=== PATIENT | female | born 1970 | race Caucasian/White ===

== ENCOUNTER → 2016-12-06 | Outpatient (CLI) | payer OTHER | LOC: FLAB 14:11 | PROVIDERS: ATTEND Emergency Medicine | DX: M79.645 Pain in left finger(s) (principal) ==

== ENCOUNTER → 2016-12-10 | Outpatient (CLI) | payer OTHER | LOC: FIMAGING 15:32 | PROVIDERS: ATTEND Internal Medicine | DX: Z12.31 Encounter for screening mammogram for malignant neoplasm of breast (principal); Z80.3 Family history of malignant neoplasm of breast | CPT/HCPCS: G0202 ==

== ENCOUNTER 2017-07-25 11:39 | Inpatient (IN) | payer OTHER ==
--- NOTE | 2017-07-25 13:56 | EDPHY ---
General Narrative: CHIEF COMPLAINT: Abdominal pain, abnormal labs HISTORY OF PRESENT ILLNESS: Patient presents with complaints of abdominal pain. This started the. First the left quadrant. Not radiates in the right upper quadrant. It intermittent. It is mild to moderate. Sometimes postprandial. Some nausea and 2 episodes of vomiting on Friday. No bloody emesis or stools. No constipation. No trauma or injury. She was seen by someone at [facility] yesterday with laboratory studies were abnormal involving her liver function test. She was seen at [facility] today, her normal primary care physician, with a obtained an STD panel due to a positive hep C result yesterday. She also has an appointment with infectious disease clinic on Friday with Dr. Gill. She has no fever. She has no current or remote use of IV drugs. She denies any pelvic pain, vaginal bleeding or discharge. She denies any previous known sexually transmitted infections. She does have had to the was done 10 years ago. No other associated complaints or modifying factors REVIEW OF SYSTEMS: Ten systems reviewed and are negative unless otherwise noted in the HPI PCP: Dr. Amy Hernandez SPECIALISTS: None PAST MEDICAL HISTORY: None PAST SURGICAL HISTORY: No recent surgeries SOCIAL HISTORY: Nonsmoker. FAMILY HISTORY: Noncontributory EXAMINATION General Appearance: Alert, no distress Head: normocephalic, atraumatic Eyes: Pupils equal and round, no conjunctival pallor or injection ENT, Mouth: Mucous membranes moist Neck: Normal inspection, supple, non-tender Respiratory: Lungs are clear to auscultation Cardiovascular: Regular rate and rhythm. No murmur Gastrointestinal: Abdomen is soft and nondistended. Mild tenderness in the epigastrium right upper quadrant. No guarding. No tympany. No rigidity. No CVA tenderness Back: non-tender, no bony abnormalities Neurological: A&O, nonfocal, normal gait Skin: Warm and dry, no rash no petechiae or purpura. No ecchymosis Extremities: Nontender, no pedal edema Psychiatric: Mood and affect normal DIFFERENTIAL DIAGNOSES: Including but not limited to hepatitis C, cholecystitis, cholelithiasis, pancreatitis MDM: 12:55 p.m. Intermittent abdominal pain with abnormal laboratory studies from this week. One of these laboratory studies is positive hep C antibody. She was seen today at an outside facility where they reportedly have drawn sexually transmitted infection laboratory panel. We are attempting to obtain the results. I have ordered an ultrasound of the gallbladder due to her pain. Laboratory studies from yesterday reveal no leukocytosis on her CBC. Her lipase was normal yesterday. She is in no acute distress and resting comfortably at this time. 2:15 p.m. Contacted by radiologist Dr. Fan. Ultrasound of the gallbladder reveals an 8 mm mobile stone within the gallbladder. There is gallbladder sludge. The common bile duct is dilated at 10 mm. There is also a 6 mm stone in the common bile duct. I will repeat her laboratory studies at this time. This was not yet done due laboratory studies done yesterday afternoon. 2:35 p.m. Patient re-evaluated. I updated her regarding the ultrasound findings. Her CBC is unremarkable. Her coagulation studies are negative. Her chemistry is pending. She is in no acute distress. 3:00 p.m. Chemistry has returned. Her bilirubin is now elevated at 3.9. It was normal yesterday. I will consult GI and admit the patient for further care. 3:07 p.m. Case discussed with Dr. Haley. He will admit the patient to his service. GI consultation pending. 3:15 p.m. Case discussed with on-call GI physician Dr. Jules Burkett. He will provide consultation on the patient. He instructed the patient may be on a light/clear liquid diet today. He will keep her NPO after midnight in anticipation of ERCP tomorrow. I informed him that I do not see any evidence of cholecystitis at this time. I have re-evaluated the patient. I have informed her of this and of the admission. She still complaining of moderate pain but tolerable at this time. She is resting comfortably in no acute distress. She is admitted in stable condition. SUPERVISION: Patient was independently examined, but I discussed the case with my secondary supervising physician Dr. Gaspar - Diagnostics Imaging Results: Imaging Impressions Abdomen Ultrasound 07/25/17 12:52 Impression: 1. Gallbladder sludge, and a mobile 8 mm gallstone. 2. Intra- and extrahepatic bile duct dilatation, with the common bile duct measuring up to 10 mm in diameter. There is an obstructive 6 mm choledocholith in the distal common bile duct at the level of the pancreatic head. Findings were discussed with Henry Santiago PA-C at 14:12, on 07/25/2017. - History Smoking Status: Never smoked - Objective Vital Signs: Initial Vital Signs Temperature (C) 98.4 F 07/25/17 11:52 Heart Rate 74 07/25/17 11:52 Respiratory Rate 18 07/25/17 11:52 Blood Pressure 126/78 H 07/25/17 11:52 O2 Sat (%) 97 07/25/17 11:52 O2 Delivery Mode Room Air Allergies/Adverse Reactions: MOLDS Allergy (Intermediate, Uncoded 05/01/10 18:25) STUFFY NOSE/ASTHMA TOPICAL ANTIFUNGAL Allergy (Intermediate, Uncoded 05/01/10 18:24) RED, ITCHY, SWOLLEN SKIN Home Medications: Medication Instructions Recorded NK [No Known Home Meds] 07/25/17 Laboratory Results: Laboratory Results 07/25/17 12:20 07/25/17 12:20 07/25/17 07/25/17 07/25/17 12:20 12:20 12:20 WBC 6.34 10^3/uL 10^3/uL (3.80-9.50) RBC 4.57 10^6/uL 10^6/uL (4.18-5.33) Hgb 14.0 g/dL g/dL (12.6-16.3) Hct 40.5 % % (38.0-47.0) MCV 88.6 fL fL (81.5-99.8) MCH 30.6 pg pg (27.9-34.1) MCHC 34.6 g/dL g/dL (32.4-36.7) RDW 12.9 % % (11.5-15.2) Plt Count 280 10^3/uL 10^3/uL (150-400) PT 13.8 SEC SEC (12.0-15.0) INR 1.04 (0.83-1.16) APTT 27.8 SEC SEC (23.0-38.0) Sodium 143 mEq/L mEq/L (135-145) Potassium 4.0 mEq/L mEq/L (3.5-5.2) Chloride 105 mEq/L mEq/L (97-110) Carbon Dioxide 24 mEq/l mEq/l (22-31) Anion Gap 14 mEq/L mEq/L (8-16) BUN 7 mg/dL mg/dL (7-23) Creatinine 0.8 mg/dL mg/dL (0.6-1.0) Estimated GFR > 60 Glucose 103 mg/dL H mg/dL (70-100) Calcium 9.8 mg/dL mg/dL (8.5-10.4) Total Bilirubin 3.9 mg/dL H D mg/dL (0.1-1.4) Conjugated Bilirubin 2.8 mg/dL H mg/dL (0.0-0.5) Unconjugated Bilirubin 1.1 mg/dL mg/dL (0.0-1.1) AST 650 IU/L H IU/L (14-46) ALT 1338 IU/L H IU/L (9-52) Alkaline Phosphatase 127 IU/L H IU/L (38-126) Total Protein 7.0 g/dL g/dL (6.3-8.2) Albumin 4.1 g/dL g/dL (3.5-5.0) Lipase 118 IU/L IU/L (23-300) Medications Given: Discontinued Medications Hydromorphone HCl (Dilaudid) 0.5 mg IVP EDNOW ONE Stop: 07/25/17 16:09 Last Admin: 07/25/17 16:11 Dose: 0.5 mg Departure - Departure Disposition: [facility] Inpatient Acute Clinical Impression: Transaminitis, Hyperbilirubinemia Choledocholithiasis with obstruction Qualifiers: Cholecystitis presence: without cholecystitis Qualified Code(s): K80.51 - Calculus of bile duct without cholangitis or cholecystitis with obstruction Condition: Good
[2017-07-25 14:28] LABS: INR 1.04 (0.83-1.16); PROTIME(PATIENT) 13.8 SEC (12.0-15.0)
[2017-07-25] MEDS ORDERED: HYDROmorphONE/DILAUDID 1 MG/ML INJ IVP ONE (16:08)
[2017-07-25] MEDS ORDERED: HYDROmorphONE/DILAUDID 1 MG/ML INJ ONE (16:09)
--- NOTE | 2017-07-25 16:19 | PDGENHP ---
History and Physical - Chief Complaint abdominal pain - History of Present Illness 46 y/o female without significant past medical history presents to the ED with 5 days of episodic abdominal pain. She described the pain as cramping in the right upper quadrant with radiation to her back. The pain would occur 1-2 hours after eating a meal. Associated symptoms were nausea, vomiting, dark urine, and occasional chills, but denies fever. She denies dysuria and diarrhea. There were no alleviating factors. She rates the pain at its worst at 9/10. She has never experienced this pain in the past. She denies sick contacts. She states she had two doctors appointments after this started and tested positive for Hepatitis. She states she is in a monogamous relationship with her , does not use IV drugs, and has not traveled outside of the country. She reports getting one tattoo over ten years ago. History Information - Allergies/Home Medication List Allergies/Adverse Reactions: MOLDS Allergy (Intermediate, Uncoded 05/01/10 18:25) STUFFY NOSE/ASTHMA TOPICAL ANTIFUNGAL Allergy (Intermediate, Uncoded 05/01/10 18:24) RED, ITCHY, SWOLLEN SKIN Home Medications: NK [No Known Home Meds] 07/25/17 [Last Taken Unknown] I have personally reviewed and updated: family history, medical history, social history, surgical history - Past Medical History no pertinent PMH - Surgical History Additional surgical history: bunionectomy, hand surgery - Family History Additional family history: celiac (mother) - Social History Smoking Status: Never smoked Alcohol Use: None Drug Use: None Review of Systems Review of Systems: ROS: 10pt was reviewed & negative except for what was stated in HPI & below Physical Exam Physical Exam: Temp Pulse Resp BP Pulse Ox 37.1 C 64 16 125/80 H 96 07/25/17 16:03 07/25/17 16:03 07/25/17 16:03 07/25/17 16:03 07/25/17 16:03 Constitutional: no apparent distress, appears nourished, not in pain, other ( mild jaundice) Eyes: PERRL, anicteric sclera, EOMI, icteric sclera Ears, Nose, Mouth, Throat: moist mucous membranes, hearing normal, ears appear normal, no oral mucosal ulcers Cardiovascular: regular rate and rhythym, no murmur, rub, or gallop, No edema Respiratory: no respiratory distress, no rales or rhonchi, clear to auscultation Gastrointestinal: normoactive bowel sounds, no palpable masses, other (soft, minimal ruq tenderness, neg coleman), No hepatosplenomegally, No guarding, No rebound Genitourinary: no bladder fullness, no bladder tenderness Skin: warm, no rashes or abrasions, no fluctuance, no induration, No mottled Musculoskeletal: full muscle strength, no muscle tenderness, normal joint ROM, no joint effusions Neurologic: AAOx3, CN II-XII Intact, No facial droop Psychiatric: interacting appropriately Lymph, Heme, Immunologic: no cervical LAD, no supraclavicular LAD Lab Data & Imaging Review 07/25/17 12:20 07/25/17 12:20 WBC 6.34 10^3/uL (3.80-9.50) 07/25/17 12:20 RBC 4.57 10^6/uL (4.18-5.33) 07/25/17 12:20 Hgb 14.0 g/dL (12.6-16.3) 07/25/17 12:20 Hct 40.5 % (38.0-47.0) 07/25/17 12:20 MCV 88.6 fL (81.5-99.8) 07/25/17 12:20 MCH 30.6 pg (27.9-34.1) 07/25/17 12:20 MCHC 34.6 g/dL (32.4-36.7) 07/25/17 12:20 RDW 12.9 % (11.5-15.2) 07/25/17 12:20 Plt Count 280 10^3/uL (150-400) 07/25/17 12:20 PT 13.8 SEC (12.0-15.0) 07/25/17 12:20 INR 1.04 (0.83-1.16) 07/25/17 12:20 APTT 27.8 SEC (23.0-38.0) 07/25/17 12:20 Sodium 143 mEq/L (135-145) 07/25/17 12:20 Potassium 4.0 mEq/L (3.5-5.2) 07/25/17 12:20 Chloride 105 mEq/L (97-110) 07/25/17 12:20 Carbon Dioxide 24 mEq/l (22-31) 07/25/17 12:20 Anion Gap 14 mEq/L (8-16) 07/25/17 12:20 BUN 7 mg/dL (7-23) 07/25/17 12:20 Creatinine 0.8 mg/dL (0.6-1.0) 07/25/17 12:20 Estimated GFR > 60 07/25/17 12:20 Glucose 103 mg/dL (70-100) H 07/25/17 12:20 Calcium 9.8 mg/dL (8.5-10.4) 07/25/17 12:20 Total Bilirubin 3.9 mg/dL (0.1-1.4) H D 07/25/17 12:20 Conjugated Bilirubin 2.8 mg/dL (0.0-0.5) H 07/25/17 12:20 Unconjugated Bilirubin 1.1 mg/dL (0.0-1.1) 07/25/17 12:20 AST 650 IU/L (14-46) H 07/25/17 12:20 ALT 1338 IU/L (9-52) H 07/25/17 12:20 Alkaline Phosphatase 127 IU/L (38-126) H 07/25/17 12:20 Total Protein 7.0 g/dL (6.3-8.2) 07/25/17 12:20 Albumin 4.1 g/dL (3.5-5.0) 07/25/17 12:20 Lipase 118 IU/L (23-300) 07/25/17 12:20 Laboratory Tests 07/24/17 16:15 Hepatitis A IgM Ab NEGATIVE Hep Bs Antigen NEGATIVE Hep B Core IgM Ab NEGATIVE Hepatitis C Antibody REACTIVE H Imaging Review: abd us reviewed: Impression: 1. Gallbladder sludge, and a mobile 8 mm gallstone. 2. Intra- and extrahepatic bile duct dilatation, with the common bile duct measuring up to 10 mm in diameter. There is an obstructive 6 mm choledocholith in the distal common bile duct at the level of the pancreatic head. Assessment & Plan Assessment: 46 y/o female presenting with 5 days of abd pain found to have: #Choledocholithiasis with obstruction (Acute) -Will consult GI to eval for ERCP #Transaminitis likely due to above vs hepatitis C #Newly diagnosed Hepatitis C --check viral load Admit to in patient Full code
[2017-07-25] MEDS ORDERED: ONDANSETRON 4 MG/2 ML VIAL IVP PRN (16:47)
[2017-07-25] MEDS ORDERED: PROMETHAZINE HCL 25 MG/ML INJ IVP PRN (16:47)
[2017-07-25] MEDS ORDERED: D5W 1/2 NS W/ 20 KCl/L 1,000 ML IV SCH (17:00)
--- NOTE | 2017-07-25 17:35 | PDMN ---
Medical Necessity Medical necessity: C/M review: Patient meets INPT criteria under [facility] M-555 Gallbladder or bile duct inflammation or stone: Acute and persistent chodocholithiasis with obstruction (gallbladder sludge, mobile 8 mm stone, intrahepatic and extrahepatic bile duct dilatation with common bile duct measuring up to 10 mm in diameter, obstructive 6 mm choledocholith in the distal common bile duct at the level of the pancreatic head on CT), newly diagnosed hepatitis C, transaminitis, total bilirubin 3.9, AST 65, ALT 1338, Alk phos 127, pain requiring planned GI consult to eval for possible ERCP, ongoing NPO, IV D5W1/2 NS with 20 meq KCl 125 ml/hr, IV Dilaudid. anticipates > 2 MN LOS for ongoing med nec for eval and TX of above.
[2017-07-25] MEDS: levOFLOXACIN 500 MG/DEXTROSE 100 ML IV SCH (18:24)
[2017-07-25] MEDS: HYDROmorphONE/DILAUDID 2 MG/ML INJ IVP PRN (21:36)
[2017-07-26] MEDS: HYDROmorphONE/DILAUDID 2 MG/ML INJ IVP PRN (04:30)
[2017-07-26 04:51] LABS: PLATELET COUNT 242 10^3/uL (150-400)
[2017-07-26] MEDS ORDERED: GLUCAGON HCL 1 MG VIAL ONE (08:45)
[2017-07-26] MEDS ORDERED: IOTHALAMATE MEG (CONRAY) 50 ML VIAL IV ONE (08:45)
[2017-07-26] MEDS ORDERED: PROPOFOL/EMULSION 500 MG/50 ML BOTTLE IV ONE (09:09)
--- NOTE | 2017-07-26 09:09 | SOAPPROG ---
SOAP Progress Note Assessment/Plan: Assessment:Plan: see full dictation CBD stone, ERCP then lap luke 07/26/17 09:08 Objective: Vital Signs Temp Pulse Resp BP Pulse Ox 36.9 C 74 16 112/70 92 07/26/17 08:51 07/26/17 08:51 07/26/17 08:51 07/26/17 08:51 07/26/17 08:51 Laboratory Results 07/26/17 04:09 07/26/17 04:09 PT 13.8 SEC (12.0-15.0) 07/25/17 12:20 INR 1.04 (0.83-1.16) 07/25/17 12:20 ICD10 Worksheet Patient Problems: Problems Problem Status Onset Choledocholithiasis with obstruction Acute Hyperbilirubinemia Acute Transaminitis Acute
[2017-07-26] MEDS ORDERED: INDOMETHACIN 50 MG SUPP PR ONE ×4 (09:12→09:33)
[2017-07-26] MEDS ORDERED: NALOXONE HCL 0.4 MG/ML INJ IVP PRN (09:32)
[2017-07-26] MEDS ORDERED: HYDROmorphONE/DILAUDID 1 MG/ML INJ IVP PRN (09:32)
[2017-07-26] MEDS ORDERED: fentaNYL 100 MCG/2 ML INJ IVP PRN (09:32)
[2017-07-26] MEDS ORDERED: PROMETHAZINE HCL 25 MG/ML INJ IVP PRN (09:32)
[2017-07-26] MEDS ORDERED: epHEDrine SULFATE 10 MG/ML SYR IVP PRN (09:32)
[2017-07-26] MEDS ORDERED: DEXAMETHASONE 4 MG/ML VIAL IVP PRN (09:32)
[2017-07-26] MEDS ORDERED: ONDANSETRON 4 MG/2 ML VIAL IVP PRN (09:32)
[2017-07-26] MEDS ORDERED: ALBUTEROL 3 ML DEYVIAL IH PRN (09:32)
[2017-07-26] MEDS ORDERED: PHENYLEPHRINE HCL 100 MCG/ML SYR IVP PRN (09:32)
--- NOTE | 2017-07-26 09:32 | PDANEPAE ---
ANE History of Present Illness here for ECRP ANE Past Medical History - Cardiovascular History Hx Hypertension: No Hx Arrhythmias: No Hx Chest Pain: No Hx Coronary Artery / Peripheral Vascular Disease: No Hx CHF / Valvular Disease: No Hx Palpitations: No - Pulmonary History Hx COPD: No Hx Asthma/Reactive Airway Disease: No Hx Recent Upper Respiratory Infection: No Hx Oxygen in Use at Home: No Hx Sleep Apnea: No Sleep Apnea Screening Result - Last Documented: Negative - Endocrine History Hx Diabetes: No Hypothyroid: No Hyperthyroid: No Obesity: no - Renal History Hx Renal Disorders: No - Liver History Hx Hepatic Disorders: No - Neurological & Psychiatric Hx Hx Neurological and Psychiatric Disorders: No - Cancer History Hx Cancer: No ANE Review of Systems Review of systems is: negative Review of Systems: - Exercise capacity Exercise capacity: >=4 METS ANE Patient History - Allergies Allergies/Adverse Reactions: MOLDS Allergy (Intermediate, Uncoded 05/01/10 18:25) STUFFY NOSE/ASTHMA TOPICAL ANTIFUNGAL Allergy (Intermediate, Uncoded 05/01/10 18:24) RED, ITCHY, SWOLLEN SKIN - Home Medications Home medications: home medication list seen and reviewed Home Medications: NK [No Known Home Meds] 07/25/17 [Last Taken Unknown] - NPO status NPO Status: no food or drink >8 hours NPO Since - Liquids (Date): 07/26/17 NPO Since - Liquids (Time): 00:00 NPO Since - Solids (Date): 07/26/17 NPO Since - Solids (Time): 00:00 - Anes Hx Anes Hx: no prior problems - Smoking Hx Smoking Status: Never smoked - Alcohol Use Alcohol Use: None ANE Labs/Vital Signs - Labs Result Diagrams: 07/26/17 04:09 07/26/17 04:09 - Vital Signs Vital Signs: reviewed preoperatively; see RN documention for details Blood Pressure: 123/64 Heart Rate: 74 Respiratory Rate: 16 O2 Sat (%): 93 Height: 162.56 cm Weight: 63.503 kg ANE Physical Exam - Airway Neck exam: FROM Mallampati Score: Class 1 - Pulmonary Pulmonary: no respiratory distress - Cardiovascular Cardiovascular: regular rate and rhythym - ASA Status ASA Status: I ANE Anesthesia Plan Anesthesia Plan: general endotracheal anesthesia
--- NOTE | 2017-07-26 09:52 | POSTOPPROG ---
Post Op Note Date of Operation: 07/26/17 Surgeon: Pablo Warren Anesthesiologist: Claudy Mcdonnell MD Anesthesia: GET(General Endotracheal) Pre-op Diagnosis: CBD stone Post-op Diagnosis: CBD stpone s/p sphincterotomy and stone removal by leonardo Indication: prob CBD stone Procedure: ERCP with sphincterotomy and stone removcal and duodenal bx Findings: CBD stone Inf/Abcess present in the surg proc area at time of surgery?: No EBL: Minimal (few ml from cold bx forceps) Total fluids administered: 500ml LR Complications: none immediate
--- NOTE | 2017-07-26 10:15 | GIREPORT ---
[facility] Surgical Services - Endoscopy Department Patient Name: Wilma Fierro Procedure Date: 07/26/2017 9:04 AM Patient Type: Inpatient Attending MD/ ER Physician: Catie Moon Procedure: ERCP Indications: Bile duct stone on Ultrasound, Suspected bile duct stone(s), Elevated l iver enzymes, FHX celiac sprue, gluten intolerance Providers: Dileep Warren MD Referring MD: Amy Hernandez Medicines: General Anesthesia, Indomethacin 100 mg LA Complications: No immediate complications. Estimated blood loss: Minimal. Description of Procedure: After obtaining informed consent, the scope was passed under direct vis ion. Throughout the procedure, the patient's blood pressure, pulse, and oxyg en saturations were monitored continuously. The was introduced through the mouth, and advanced to the duodenum and used to inject contrast into th e bile duct. The ERCP was accomplished without difficulty. The patient tolerated the procedure well. Findings: The low vision therapist film was normal. The esophagus was successfully intubated und er direct vision. The scope was advanced to a normal major papilla in the descending duodenum without detailed examination of the pharynx, larynx and associated structures, and upper GI tract. The upper GI tract was gross ly normal. The bile duct was deeply cannulated with the traction (standard ) sphincterotome. Contrast was injected. I personally interpreted the mj e duct images. There was brisk flow of contrast through the ducts. Image quality was adequate. Contrast extended to the hepatic ducts. Opacifica tion of the common bile duct was successful. The maximum diameter of the shon ts was 10 mm. The common bile duct contained one stone, which was 6 mm in diameter. Choledocholithiasis was found in a nondilated duct. The commo n bile duct contained one stone, which was 6 mm in diameter. An 11 mm mj iary sphincterotomy was made with a traction (standard) sphincterotome using ERBE electrocautery. There was no post-sphincterotomy bleeding. The biliary tree was swept with a 12 mm balloon starting at the bifurcation. All stones were removed. Biopsy was performed in the entire duodenum through the ERCP s cope with a cold forceps for histology and evaluation of celiac sprue. The examined duodenum was normal. Estimated Blood Loss: Estimated blood loss was minimal. Post Op Diagnosis: See stone in photo number one - Biopsy was performed in the entire duodenum. - Normal examined duodenum. - Choledocholithiasis was found. Complete removal was accomplished by biliary sphincterotomy and balloon extraction. - A biliary sphincterotomy was performed. - The biliary tree was swept. Recommendation: - Return patient to [facility] for [facility] care. - Refer to a surgeon today. I have phoned Dr. Bullock office. - NPO. If surgery is planned for tomorrow or later, she can try a clear liquid diet. - Thank you for allowing me to help in your patient's care. Do not hesi fontaine to call with any questions. Attending Participation: I personally performed the entire procedure. Briana Falk M.D Dileep Warren MD 07/26/2017 10:15:08 AM This report has been signed electronicallyMathew MD Briana Number of Addenda: 0 Note Initiated On: 07/26/2017 9:04 AM [email or web address]
--- NOTE | 2017-07-26 10:17 | POSTANESTH ---
Post Anesthetic Evaluation Cardiovascular Status: Normal, Stable Respiratory Status: Normal, Stable, Requires Airway Assist Pain Control: Adequate, Prn Tx Ordered Nausea/Vomiting Control: Adequate, Prn Tx Ordered Complications Possibly Related to Anesthesia: None Noted
--- NOTE | 2017-07-26 10:54 | GCON ---
[f rep st] CONSULTATION DATE OF CONSULTATION: 07/26/2017 REQUESTING PHYSICIAN: Jesus Haley DO. INDICATION FOR CONSULTATION: Elevated liver enzymes, abnormal sonogram, probable common bile duct st one. HISTORY OF PRESENT ILLNESS: The patient is a pleasant 46-year-old female with a past medical history significant for just some surgeries including a uvulectomy for snoring, but likely related to sleep apnea. 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 This did occur after meals within an hour or 2. She did have some nausea, vomiting, and dark urine with occasional chills but no fever s. This resolved and recurred again and became extremely painful on Friday afternoon. She presented to the emergency room for evaluation and noted to have elevated liver enzymes. Sonogram revealed a dilated common bile duct with probable choledocholithiasis and she is admitted for the above and I am called to help evaluate in that regard. Of note, when she saw an internal medicine physician as an outpatient (not her ordinary primary care physician) they ordered hepatitis serologies and hep C anti body was positive. She has no risk factors and likely a false positive. Viral load has been obtaine d and will follow labs. PAST MEDICAL/ SURGICAL HISTORY: No medical history. Surgical history : She had a surgery on her thumb for bone chip. She had bunionectomy about 7-8 year s ago. She had uvulectomy for snoring, likely sleep apnea, which has improved dramatically. MEDICATIONS: None. ALLERGIES: Topical antifungals and mold. SOCIAL HISTORY: Does not smoke. She drinks alcohol infrequently. FAMILY HISTORY: A grandmother with breast cancer in her 80s. No family history of colon cancer, col on polyps to her knowledge. REVIEW OF SYSTEMS: As noted in the HPI. Complete review of systems was obtained and is negative oth er than noted in the HPI. Pertinent negatives currently she says over the last 24 hours she has had no chills, no sweats, no fevers. She has no chest pain. No shortness of breath. No tachypnea. PHYSICAL EXAM: GENERAL: Well-developed, well-nourished female in mild discomfort sitting in her bed . VITAL SIGNS: Blood pressure 110/79, pulse 65, respirations are 17. She is 100% on 2 L. HEENT: Eyes mildly icteric. DEREK. EOMI. Mouth: No lesions, moist membranes. NECK: Supple. Full range o f motion. No JVD. BACK: No spine tenderness. No CVA tenderness. LUNGS: Clear. CARDIAC: S1, S2. Regular rate and rhythm. No murmurs, rubs or gallops appreciated. ABDOMEN: Bowel sounds are normal in pitch and frequency. Abdomen is soft with right upper quadrant tenderness without rebound. No g uarding. No hepatosplenomegaly. EXTREMITIES: No cyanosis, clubbing, or edema. NEUROLOGIC: Cranial nerves intact, nonfocal. SKIN: No stigmata of advanced liver disease. No rashes. LABORATORY DATA: From yesterday on admission, bilirubin 3.9, AST 650, ALT 1338, alkaline phosphatase 127. Today bilirubin 3.0, AST 266, ALT 73, alkaline phosphatase 107. Lipase yesterday was 118. He r metabolic panel was normal. Protime 13.8, PTT 27.8. WBC from today 6.26, hemoglobin 13.4, hematoc rit 39.2, platelet count 242. Hep C viral load is pending. Previous laboratory studies on September 15, 2015, she had AST 21, ALT 24, alkaline phosphatase 36. From April 23, 2017, hep A antibody IgM nonreactive, negative hep B surface antigen, negative hep B cor e antibody, IgM negative. Hep C antibody reactive. PCR pending from today. RECOMMENDATIONS: 1. Proceed with endoscopic retrograde cholangiopancreatography with possible sphincterotomy and ston e removal. 2. Consult surgery for laparoscopic cholecystectomy after clearance of duct. 3. Followup viral load for hepatitis C, expect this will be negative. 4. Recommend checking hepatitis A antibody total, hepatitis B surface antibody to see if she is immu ne. If she is not immune recommend vaccine via primary care physician as an outpatient. 5. Routine colon cancer screening commenced at age 48 with no family history. 6. Further recommendations to follow results of the endoscopic retrograde cholangiopancreatography a nd clinical course. Thank you for allowing me to partake in patient's healthcare. Do not hesitate to call me with beto frankel. /[id number]/MODL
--- NOTE | 2017-07-26 11:19 | ASMTCMCOM ---
CM Note CM Note Notes: Spoke w/CARB[employer] INSERTER, pt to have sx. Anticipate will dc home w/support of when medically stable. CM available for any changes. DC Plan: Independent Date Signed: 07/26/2017 11:18 AM Electronically Signed By:Madhavi Owens RN
--- NOTE | 2017-07-26 11:52 | HOSPPROG ---
Hospitalist Progress Note Assessment/Plan: 46 y/o female presenting with 5 days of abd pain. First encounter, chart reviewed. #Choledocholithiasis with obstruction (Acute) -GI for ERCP, stone removal -possible lap luke after #Transaminitis -check hep c load -multifactorial -better this am #Newly diagnosed Hepatitis C -check viral load -check antibodies Admit to in patient Full code Subjective: Feeling much better after procedure. Objective: Vital Signs Temp Pulse Resp BP Pulse Ox 36.9 C 58 L 16 139/72 H 96 07/26/17 11:32 07/26/17 11:32 07/26/17 11:32 07/26/17 11:32 07/26/17 11:32 Laboratory Results 07/26/17 04:09 07/26/17 04:09 07/25/17 07/26/17 07/27/17 05:59 05:59 05:59 Intake Total 500 Balance 500 PT 13.8 SEC (12.0-15.0) 07/25/17 12:20 INR 1.04 (0.83-1.16) 07/25/17 12:20 - Physical Exam Constitutional: no apparent distress, appears nourished, not in pain Eyes: PERRL, anicteric sclera, EOMI Ears, Nose, Mouth, Throat: moist mucous membranes, hearing normal, ears appear normal Cardiovascular: regular rate and rhythym, No JVD, No edema Respiratory: no respiratory distress, no rales or rhonchi, reduced air movement Gastrointestinal: tenderness, No ascites, No guarding Skin: warm, normal color, No erythema Musculoskeletal: no muscle tenderness, no joint effusions, generalized weakness Neurologic: AAOx3 Psychiatric: interacting appropriately, not anxious, not encephalopathic, thought process linear ICD10 Worksheet Patient Problems: Problems Problem Status Onset Choledocholithiasis with obstruction Acute Transaminitis Acute Hyperbilirubinemia Acute
--- NOTE | 2017-07-26 12:45 | SOAPPROG ---
CIELO Progress Note Assessment/Plan: Assessment: DOING WELL STATUS POST ERCP/WILL NEED LAP CHOLY/RISKS AND OPTIONS BEEN FULLY DISCUSSED/LABS IMPROVING/AFEBRILE/NONICTERIC Plan: LAP CHOLY IN THE A.M. 07/26/17 12:44 Objective: Vital Signs Temp Pulse Resp BP Pulse Ox 36.9 C 58 L 16 139/72 H 96 07/26/17 11:32 07/26/17 11:32 07/26/17 11:32 07/26/17 11:32 07/26/17 11:32 Laboratory Results 07/26/17 04:09 07/26/17 04:09 07/25/17 07/26/17 07/27/17 05:59 05:59 05:59 Intake Total 500 Balance 500 PT 13.8 SEC (12.0-15.0) 07/25/17 12:20 INR 1.04 (0.83-1.16) 07/25/17 12:20 ICD10 Worksheet Patient Problems: Problems Problem Status Onset Choledocholithiasis with obstruction Acute Hyperbilirubinemia Acute Transaminitis Acute
[2017-07-26] MEDS: levOFLOXACIN 500 MG/DEXTROSE 100 ML IV SCH (17:49)
[2017-07-26] MEDS ORDERED: MELATONIN 3 MG TAB PO SCH (21:00)
[2017-07-27 05:14] LABS: PLATELET COUNT 254 10^3/uL (150-400)
[2017-07-27] MEDS ORDERED: BUPIVACAINE 0.5% 30 ML SDV ONE (07:41)
[2017-07-27] MEDS ORDERED: ceFAZolin 1 GM/5 ML SYR ONE (07:44)
[2017-07-27] MEDS ORDERED: HEPARIN 1000 UNIT/1 ML MDV ONE (07:45)
[2017-07-27] MEDS ORDERED: ERTAPENEM 1 GM VIAL ONE (07:48)
[2017-07-27] MEDS ORDERED: ERTAPENEM 1 GM VIAL IV ONE (07:49)
--- NOTE | 2017-07-27 07:51 | SOAPPROG ---
CIELO Progress Note Assessment/Plan: Assessment: DOING WELL STATUS POST ERCP/WILL NEED LAP CHOLY/RISKS AND OPTIONS BEEN FULLY DISCUSSED/LABS IMPROVING/AFEBRILE/NONICTERIC Plan: LAP CHOLY IN THE A.M. 07/26/17 12:44 07/27/17 07:50 AFEBRILE/ PAIN RESOLVING/ LABS IMPROVING/ RISKS AND OPTIONS FULLY DISCUSSED/ PLAN LAP CHOLEY Objective: Vital Signs Temp Pulse Resp BP Pulse Ox 36.8 C 74 16 113/69 93 07/27/17 07:20 07/27/17 07:20 07/27/17 07:20 07/27/17 07:20 07/27/17 07:20 Laboratory Results 07/27/17 04:15 07/27/17 04:15 07/26/17 07/27/17 07/28/17 05:59 05:59 05:59 Intake Total 500 Balance 500 PT 13.8 SEC (12.0-15.0) 07/25/17 12:20 INR 1.04 (0.83-1.16) 07/25/17 12:20 ICD10 Worksheet Patient Problems: Problems Problem Status Onset Choledocholithiasis with obstruction Acute Hyperbilirubinemia Acute Transaminitis Acute
--- NOTE | 2017-07-27 08:03 | PDANEPAE ---
ANE History of Present Illness cholelithiasis ANE Past Medical History - Cardiovascular History Hx Hypertension: No Hx Arrhythmias: No Hx Chest Pain: No Hx Coronary Artery / Peripheral Vascular Disease: No Hx CHF / Valvular Disease: No Hx Palpitations: No - Pulmonary History Hx COPD: No Hx Asthma/Reactive Airway Disease: No Hx Recent Upper Respiratory Infection: No Hx Oxygen in Use at Home: No Hx Sleep Apnea: No Sleep Apnea Screening Result - Last Documented: Negative - Endocrine History Hx Diabetes: No Hypothyroid: No Hyperthyroid: No Obesity: no - Renal History Hx Renal Disorders: No - Liver History Hx Hepatic Disorders: No - Neurological & Psychiatric Hx Hx Neurological and Psychiatric Disorders: No - Cancer History Hx Cancer: No - GI History GERD: no - Chronic Pain History Chronic Pain: No ANE Review of Systems Review of Systems: - Exercise capacity METS (RN): 4 METS ANE Patient History - Allergies Allergies/Adverse Reactions: MOLDS Allergy (Intermediate, Uncoded 05/01/10 18:25) STUFFY NOSE/ASTHMA TOPICAL ANTIFUNGAL Allergy (Intermediate, Uncoded 05/01/10 18:24) RED, ITCHY, SWOLLEN SKIN - Home Medications Home Medications: NK [No Known Home Meds] 07/25/17 [Last Taken Unknown] - NPO status NPO Since - Liquids (Date): 07/27/17 NPO Since - Liquids (Time): 00:00 NPO Since - Solids (Date): 07/27/17 NPO Since - Solids (Time): 00:00 - Anes Hx Anes Hx: awareness under anesthesia (Patient reports awareness under anesthesia as a child) - Smoking Hx Smoking Status: Former smoker (in college) - Alcohol Use Alcohol Use: Other (1-2 drinks twice a week) - Family Anes Hx Family Anes Hx: neg - N/A ANE Labs/Vital Signs - Labs Result Diagrams: 07/27/17 04:15 07/27/17 04:15 - Vital Signs Blood Pressure: 113/69 Heart Rate: 74 Respiratory Rate: 16 O2 Sat (%): 93 Height: 162.56 cm Weight: 63.503 kg ANE Physical Exam - Airway Neck exam: FROM Mallampati Score: Class 1 Mouth exam: normal dental/mouth exam (patient reports some tenderness in L upper front tooth) - Pulmonary Pulmonary: clear to auscultation - Cardiovascular Cardiovascular: regular rate and rhythym - ASA Status ASA Status: II ANE Anesthesia Plan Anesthesia Plan: general endotracheal anesthesia
[2017-07-27] MEDS ORDERED: MIDAZOLAM 2 MG/2 ML VIAL IVP ONE (08:04)
[2017-07-27] MEDS ORDERED: MIDAZOLAM 2 MG/2 ML VIAL ONE (08:05)
[2017-07-27] MEDS ORDERED: fentaNYL 250 MCG/5 ML INJ ONE (08:07)
[2017-07-27] MEDS ORDERED: DEXAMETHASONE 4 MG/ML VIAL ONE (08:09)
[2017-07-27] MEDS ORDERED: PROPOFOL 200 MG/20 ML VIAL ONE (08:09)
[2017-07-27] MEDS ORDERED: ROCURONIUM 50 MG/5 ML VIAL ONE (08:09)
[2017-07-27] MEDS ORDERED: ONDANSETRON 4 MG/2 ML VIAL ONE (08:36)
[2017-07-27] MEDS ORDERED: PHENYLEPHRINE HCL 100 MCG/ML SYR ONE (08:38)
[2017-07-27] MEDS ORDERED: NALOXONE HCL 0.4 MG/ML INJ IVP PRN (08:44)
[2017-07-27] MEDS ORDERED: HYDROCODONE/APAP 5/325 TAB PO PRN (08:44)
[2017-07-27] MEDS ORDERED: OXYCODONE/APAP 5/325 TAB PO PRN ×2 (08:44→09:24)
[2017-07-27] MEDS ORDERED: SUGAMMADEX SODIUM 200 MG/2 ML VIAL IVP ONE (08:51)
[2017-07-27] MEDS ORDERED: ENOXAPARIN 40 MG/0.4 ML SYR SC SCH (09:00)
[2017-07-27] MEDS ORDERED: fentaNYL 100 MCG/2 ML INJ ONE (09:01)
[2017-07-27] MEDS: fentaNYL 100 MCG/2 ML INJ IVP PRN ×2 (09:05→09:26)
[2017-07-27] MEDS ORDERED: KETOROLAC 30 MG/1 ML SDV ONE (09:07)
[2017-07-27] MEDS ORDERED: KETOROLAC 30 MG/1 ML SDV IVP ONE (09:07)
--- NOTE | 2017-07-27 09:22 | POSTOPPROG ---
Post Op Note Date of Operation: 07/27/17 Surgeon: Leonardo Bullock Anesthesiologist: melida Pre-op Diagnosis: cholelithiasis and cholecystitis Post-op Diagnosis: same Indication: pain Procedure: lap choly Findings: cholelithiasis and cholecystitis Inf/Abcess present in the surg proc area at time of surgery?: Yes Depth: Organ Space EBL: Minimal Complications: none Specimen(s): gallbladder
[2017-07-27] MEDS ORDERED: HYDROmorphONE/DILAUDID 1 MG/ML INJ IVP PRN (09:24)
[2017-07-27] MEDS ORDERED: ONDANSETRON 4 MG/2 ML VIAL IVP PRN (09:24)
[2017-07-27] MEDS ORDERED: D5W 1/2 NS W/ 20 KCl/L 1,000 ML IV SCH (09:30)
--- NOTE | 2017-07-27 09:47 | GOP ---
[f rep st] OPERATIVE REPORT DATE OF OPERATION: 07/27/2017 SURGEON: Leonardo Bullock MD PRESBYTERIAN CLERGY: None. ANESTHESIOLOGIST: Ced Alegre MD. PREOPERATIVE DIAGNOSIS: Cholelithiasis, cholecystitis, status post choledocholithiasis. POSTOPERATIVE DIAGNOSIS: Cholelithiasis, cholecystitis, status post choledocholithiasis. PROCEDURE PERFORMED: Laparoscopic cholecystectomy. FINDINGS: Patient was found to have a dilated mildly inflamed gallbladder containing stones. Ducts were small. ESTIMATED BLOOD LOSS: Negligible. DESCRIPTION OF PROCEDURE: Patient taken to the operating room where she received satisfactory genera l endotracheal anesthesia by Dr. Alegre. She was placed in the supine position, prepped and draped in the usual sterile fashion. An infraumbilical incision was made. A Veress needle inserted. Pneumop eritoneum was established. Trocar was introduced. Laparoscope introduced. Good visualization was o btained. Three other trocars placed in the upper abdomen under direct vision. The gallbladder was e levated up, adhesions were taken down with electrocautery until the entire gallbladder could be expos ed. Cystic triangle was carefully dissected free. The cystic duct and cystic artery were isolated w ith care to avoid injury to the common duct. A good clear view was obtained and both structures were multiply hemoclipped and divided. Peritoneum of the gallbladder was incised. The gallbladder was d issected free in the bed and hepatic fossa and extracted through the upper midline port site. Hemost asis was assured. The wound was irrigated. Trocars removed under direct vision. Trocar sites were closed with 0 Vicryl for the fascia, 4-0 Monocryl subcuticular stitch for the skin. All layers infil trated with 0.5% Marcaine. COMPLICATIONS: None. DISPOSITION: Taken to recovery room in good condition. /[id number]/MODL
[2017-07-27] MEDS: HYDROmorphONE/DILAUDID 2 MG/ML INJ IVP PRN (10:15)
[2017-07-27 10:17] VITALS: RESP 16
[2017-07-27] MEDS ORDERED: KETOROLAC 15 MG/1 ML SDV IVP SCH (12:00)
--- NOTE | 2017-07-27 12:23 | SOAPPROG ---
CIELO Progress Note Assessment/Plan: Assessment:Plan: see full dictation CBD stone, ERCP then lap luke 07/26/17 09:08 07/27/17 12:19 1) CBD stone - removed with ERCp 2) GB - s/p lap luke 3) LFT's - trending down c/w tx as above 4) Hep C - prob false positive ab, f/u viral load 5) Gluten - f/u duodenal bx for evaluation of celiac dz vs gluten intolerance if has Celiac or Hep c then we will see her in the office If has neither, then we will se her at age 48 for routine colon cancer screening will sign off thank you Subjective: cc- CBD stone, cholecystis feeling better s/p ERCp and lap luke had immediate relief with ERCp once stone removed and duct was not dilated Objective: Vital Signs Temp Pulse Resp BP Pulse Ox 36.6 C 58 L 16 104/61 96 07/27/17 11:16 07/27/17 11:16 07/27/17 11:16 07/27/17 11:16 07/27/17 11:16 Laboratory Results 07/27/17 04:15 07/27/17 04:15 07/26/17 07/27/17 07/28/17 05:59 05:59 05:59 Intake Total 500 1220 Balance 500 1220 PT 13.8 SEC (12.0-15.0) 07/25/17 12:20 INR 1.04 (0.83-1.16) 07/25/17 12:20 A+Ox3 CTA S1S2 +BS decreased, soft Laboratory Tests 07/25/17 07/25/17 07/26/17 12:20 20:06 04:09 Total Bilirubin 3.9 H D 3.0 H AST 650 H 266 H ALT 1338 H 783 H Alkaline Phosphatase 127 H 107 HCV RNA (PCR) IUs/ml Pending HCV RNA PCR log IUs/ml Pending 07/27/17 04:15 Total Bilirubin 1.2 D AST 89 H ALT 528 H Alkaline Phosphatase 94 HCV RNA (PCR) IUs/ml HCV RNA PCR log IUs/ml ICD10 Worksheet Patient Problems: Problems Problem Status Onset Choledocholithiasis with obstruction Acute Hyperbilirubinemia Acute Transaminitis Acute
--- NOTE | 2017-07-27 12:38 | HOSPPROG ---
Hospitalist Progress Note Assessment/Plan: 46 y/o female presenting with 5 days of abd pain. #Choledocholithiasis with obstruction (Acute) -GI for ERCP, stone removal -immediate relief #Lap luke -to OR today with Dr Bullock -doing well #Transaminitis -check hep c load -multifactorial -labs improving #Newly diagnosed Hepatitis C -viral load pending -check antibodies -follow up GI if positive Admit to in patient Full code DC home tonight Subjective: Doing well. Some discomfort. Objective: Vital Signs Temp Pulse Resp BP Pulse Ox 36.6 C 58 L 16 104/61 96 07/27/17 11:16 07/27/17 11:16 07/27/17 11:16 07/27/17 11:16 07/27/17 11:16 Laboratory Results 07/27/17 04:15 07/27/17 04:15 07/26/17 07/27/17 07/28/17 05:59 05:59 05:59 Intake Total 500 1220 Balance 500 1220 PT 13.8 SEC (12.0-15.0) 07/25/17 12:20 INR 1.04 (0.83-1.16) 07/25/17 12:20 - Physical Exam Constitutional: no apparent distress, appears nourished Eyes: PERRL, anicteric sclera Ears, Nose, Mouth, Throat: moist mucous membranes, hearing normal Cardiovascular: No JVD, No edema Respiratory: no respiratory distress, no rales or rhonchi Gastrointestinal: tenderness, No ascites, No guarding Skin: warm, normal color Musculoskeletal: no joint effusions, generalized weakness Neurologic: AAOx3 Psychiatric: interacting appropriately, not anxious ICD10 Worksheet Patient Problems: Problems Problem Status Onset Choledocholithiasis with obstruction Acute Hyperbilirubinemia Acute Transaminitis Acute
[2017-07-27 12:49] VITALS: TEMP 98.7; O2SAT 94
--- NOTE | 2017-07-27 13:23 | POSTANESTH ---
Post Anesthetic Evaluation Cardiovascular Status: Normal, Stable Respiratory Status: Normal, Stable Level of Consciousness/Mental Status: Can Participate in Eval Pain Control: Adequate, Prn Tx Ordered Nausea/Vomiting Control: Adequate, Prn Tx Ordered Complications Possibly Related to Anesthesia: None Noted
--- NOTE | 2017-07-27 13:46 | SOAPPROG ---
CIELO Progress Note Assessment/Plan: Assessment: DOING WELL STATUS POST ERCP/WILL NEED LAP CHOLY/RISKS AND OPTIONS BEEN FULLY DISCUSSED/LABS IMPROVING/AFEBRILE/NONICTERIC Plan: LAP CHOLY IN THE A.M. 07/26/17 12:44 07/27/17 07:50 AFEBRILE/ PAIN RESOLVING/ LABS IMPROVING/ RISKS AND OPTIONS FULLY DISCUSSED/ PLAN LAP CHOLEY 07/27/17 13:45 Postop doing well/afebrile/possibly home this evening Objective: Vital Signs Temp Pulse Resp BP Pulse Ox 37.1 C 66 16 112/56 L 94 07/27/17 12:16 07/27/17 12:16 07/27/17 12:16 07/27/17 12:16 07/27/17 12:16 Laboratory Results 07/27/17 04:15 07/27/17 04:15 07/26/17 07/27/17 07/28/17 05:59 05:59 05:59 Intake Total 500 1220 Balance 500 1220 PT 13.8 SEC (12.0-15.0) 07/25/17 12:20 INR 1.04 (0.83-1.16) 07/25/17 12:20 ICD10 Worksheet Patient Problems: Problems Problem Status Onset Choledocholithiasis with obstruction Acute Hyperbilirubinemia Acute Transaminitis Acute
[2017-07-27 14:08] VITALS: BP 120/67; PULSE 64
--- NOTE | 2017-07-27 14:53 | GCON ---
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 Found to have cholelithiasis and choledocholithiasi s. She has underwent an ERCP with removal of a common duct stone and was consulted for care of her g allbladder. She has had previous episodes of pain prior to this episode. Presently, she denies any jaundice or yellow eyes. The pain has subsided after the ERCP. ALLERGIES: None. PRESENT MEDICATIONS: None. REVIEW OF SYSTEMS: Reveals no major medical problems other than related to the HPI. PAST MEDICAL HISTORY: Includes some hand surgery, a bunionectomy. No other major medical issues, pa rticularly no diabetes, hypertension, or asthma. REVIEW OF SYSTEMS: Negative on a full 10-point review of systems. Specifically, she does not smoke and denies any cardiac history. FAMILY HISTORY: Noncontributory. PHYSICAL EXAM: VITAL SIGNS: This is an alert, healthy, 46-year-old female in no acute distress. HE AD and NECK: Reveals no icterus or oral lesions. NECK: Supple. CHEST: Clear to auscultation and percussion. CARDIAC: A regular rhythm. ABDOMEN: Soft and nontender except some mild tenderness in the right upper quadrant. Bowel sounds are present. EXTREMITIES: Benign with full pulses. NEUROL OGIC: Physiologic. PSYCHIATRIC: Reveals her to be alert, oriented, and cooperative. IMPRESSION: Cholecystitis, cholelithiasis, and choledocholithiasis. PLAN: Laparoscopic cholecystectomy after successful ERCP. Risks and options have been fully discuss ed, and she wishes to proceed. /[id number]/MODL
--- NOTE | 2017-07-27 17:39 | GDS ---
[f rep st] DISCHARGE SUMMARY DISCHARGE DIAGNOSES: 1. Choledocholithiasis. 2. Transaminitis. CONSULTATIONS: 1. Gastroenterology. 2. Surgery. STUDIES AND PROCEDURES: 1. ERCP with stone removal. 2. Laparoscopic cholecystectomy. HOSPITAL COURSE: The patient is a 46-year-old female who presented to the emergency room with compla ints of intermittent abdominal pain for approximately 5 days. She was evaluated during this hospital course and noted to have gallstones. She did receive a consultation from Gastroenterology. An ERCP with stone removal was performed. The patient's symptoms improved. She then was seen by Dr. Ko Bullock of Surgery. A laparoscopic cholecystectomy was performed. The patient is in the postoperati ve setting. She is tolerating oral intake. She is able to maintain hydration, and she is eager to b e discharged home. I will discharge the patient home with followup with Dr. Bullock in 10 days, as wel l as her primary care physician, Dr. Amy Hernandez there. Pending studies include hepatitis C antib odies, as well as biopsy results from her ERCP. She will follow up with these with her primary care physician and/or Gastroenterology of her choice. She is aware of the need for followup regarding the se laboratory evaluations and is compliant with this plan. DISCHARGE MEDICATIONS: Please refer to EMR form. I have provided the patient a prescription for Per cocet to assist in pain management. I have spent greater than 35 minutes in the care, coordination, and management of the patient's dispo sition. I reviewed her with Dr. Leonardo Bullock who is in agreement with this plan. /[id number]/MODL
--- NOTE | 2017-07-28 16:47 | ASDISCHSUM ---
Discharge Information Plan Status:Home with No Needs Medically Cleared to Leave:07/26/2017 Discharge Date:07/27/2017 04:14 PM CM D/C Disposition: ADT D/C Disposition:Home, Routine, Self-Care Projected Discharge Date:07/27/2017 12:00 AM Transportation at D/C: Discharge Delay Reason: Follow-Up Date:07/27/2017 12:00 AM Discharge Slot: Final Diagnosis: Placement Information Patient Contact Information Contact Name:SYLVIA Relationship: Address:[address] [place] Alternate Phone: State/Zip Code:[place] [address] Email: Financial Information Financial Class:[employer] [facility] Primary Plan Desc:[employer] LOC[employer] Primary Plan Number:[id number] Secondary Plan Desc: Secondary Plan Number: Assessment Information [facility] CM Progress Note CM Note CM Note Notes: Spoke w/RESIDENT MEDICAL OFFICER, pt to have sx. Anticipate will dc home w/support of when medically stable. CM available for any changes. DC Plan: Independent Date Signed: 07/26/2017 11:18 AM Electronically Signed By:Madhavi Owens RN Intervention Information
[2017-07-31 14:44] LABS: HCV QT RNA PCR < 1 IU/mL (<15)
== END 2017-07-27 16:14 | disposition home or self-care (01) | DRG 419 ==
LOC: F3E 16:22
PROVIDERS: ADMIT Family Medicine; ATTEND Internal Medicine
PROC: 0DB94ZX Excision of Duodenum, Percutaneous Endoscopic Approach, Diagnostic (ICD-10-PCS; 2017-07-26)
PROC: 0FC98ZZ Extirpation of Matter from Common Bile Duct, Via Natural or Artificial Opening Endoscopic (ICD-10-PCS; 2017-07-26)
PROC: BF10YZZ Fluoroscopy of Bile Ducts using Other Contrast (ICD-10-PCS; 2017-07-26)
PROC: 0FT44ZZ Resection of Gallbladder, Percutaneous Endoscopic Approach (ICD-10-PCS; principal; 2017-07-27 08:00)
DX: K80.41 Calculus of bile duct with cholecystitis, unspecified, with obstruction (principal); R74.0 Nonspecific elevation of levels of transaminase and lactic acid dehydrogenase [LDH]
CPT/HCPCS: J1100; J1170; J1335; J1610; J1885; J1956; J2250; J2370; J2405; J2704; J3010; Q9961